=== PATIENT | male | born 1945 | race Caucasian/White ===

== ENCOUNTER 2016-11-05 15:47 | Emergency (ER) | payer BC, MEDICARE, OTHER ==
[2016-11-05] MEDS ORDERED: ONDANSETRON ODT 4 MG TAB.RAPDIS ONE (17:03)
[2016-11-05] MEDS ORDERED: ACETAMINOPHEN 325 MG TABLET PO ONE (17:05)
--- NOTE | 2016-11-05 17:58 | ER NURSING DOCUMENTATION ---
Nurse's Notes [facility] Name:Adrian Fountain Age:71 yrs Sex:Male :1945 Arrival Date:11/05/2016 Time:15:47 Bed5 Private MD: Diagnosis:Leg Laceration, Except Thigh, w/o Complication Presentation: 11/05 15:51 Presenting complaint: Patient states: L ankle laceration. Transition of care: Home. lp 15:51 Acuity: CORIN 3 lp 15:51 Method Of Arrival: Private Vehicle lp 15:57 Complicating Factors: Metal piece from we[employer]ant charles flew into ankle. lp Triage Assessment: 16:05 General: Appears in no apparent distress, Behavior is appropriate for age. Pain: lp Complains of pain in anterior aspect of left ankle Pain currently is 6 out of 10 on a pain scale. EENT: No deficits noted. Neuro: No deficits noted. Cardiovascular: No deficits noted. Respiratory: No deficits noted. GI: : No deficits noted. Derm: No deficits noted. Musculoskeletal: No deficits noted. Injury Description: Laceration sustained to anterior aspect of left ankle is clean, not bleeding. Historical: - Allergies: No known drug Allergies; - Home Meds: 1. None - PMHx: Hearing Decreased; Duputyren contracture; - PSHx: L ORIF wrist; BIH; - Tetanus: < 10 years. - Ebola Screening: : Patient negative for fever greater than or equal to 101.5 degrees Fahrenheit, and additional compatible Ebola Virus Disease symptoms. Patient denies exposure to infectious person. Patient denies travel to an Ebola-affected area in the 21 days before illness onset. . - Immunization history: Pneumococcal vaccine is up to date, Flu Vaccine < 1 year. - Social history: Smoking status: Patient states was never smoker of tobacco. Screenin:07 Infectious Disease Risk None. Abuse screen: Denies threats or abuse. Denies injuries lp from another. Nutritional screening: No deficits noted. Assessment: 16:06 See Triage Assessment done by same RN. lp Vital Signs: 16:06 BP 120 / 60; Pulse 58; Resp 16; Temp 97.3(TE); Pulse Ox 95% on R/A; Weight 61.23 kg; lp Height 5 ft. 5 in. (165.10 cm); Pain 6/10; 16:06 Body Mass Index 22.46 (61.23 kg, 165.10 cm) lp ED Course: 15:49 Patient arrived in ED. ama 15:51 Mimi Cantor RN is Primary Nurse. lp 15:51 Triage completed. lp 15:51 Chuck Carlos MD is Attending Physician. tl1 16:[address] Carlos notified. lp 16:07 Valuables Remains with patient Patient has correct armband on for positive lp identification. Bed in low position. Call light in reach. Side rails up X 1. Administered Medications: 16:52 CANCELLED (Other Intervention Used): 2 tabs of (oxyCODONE 5 mg, Acetaminophen 325 mg) lp PO once 16:53 Drug: Ondansetron 4 mg; Route: PO; lp 17:56 Follow up: Response: Nausea is decreased lp 16:54 Drug: oxyCODONE 10 mg; Route: PO; lp 17:56 Follow up: Response: Pain is decreased lp 16:54 Drug: Acetaminophen 650 mg; Route: PO; lp 17:56 Follow up: Response: Pain is decreased lp Outcome: 17:39 Discharge ordered by . tl1 17:56 Discharged to home with crutches. lp 17:56 Condition: good 17:56 Instructed on crutch walking, discharge instructions, follow up and referral plans. medication usage. 17:57 Patient left the ED. lp 07 13:21 Discharge F/U Call: Unable to reach: non-working number rh Signatures: Mimi Cantor RN RN Parvin Jacobsen tt Jason Bill, Reg Reg Chuck Suarez MD MD tl1 Precious Gatica rh
--- NOTE | 2016-11-05 17:58 | ER PHYSICIAN DOCUMENTATION ---
Physician Documentation [facility] Name:Adrian Fountain Age:71 yrs Sex:Male :1945 Arrival Date:11/05/2016 Time:15:47 Bed5 Private MD: Chuck Cruz Disposition: 11/07 10:06 Chart complete. tl1 Disposition: 11/05/16 17:39 Discharged to Home/Self Care. Impression: Leg Laceration, Except Thigh, w/o Complication. - Condition is Good. - Discharge Instructions: Abrasions - LACERATION, All. - Prescriptions for Percocet 5- 325 mg Oral Tablet - take 1 tablet by ORAL route every 6 hours As needed; 20 tablet. Zofran 4 mg Oral Tablet - take 1-2 tablet by ORAL route every 4-6 hours As needed; 10 tablet. - Medical Reconciliation form form. - Follow up: Emergency Department; When: 2 - 3 days; Reason: Recheck today's complaints. - Problem is new. - Symptoms have improved. HPI: 11/05 16:00 This 71 yrs old Male presents to ER via Private Vehicle with complaints of tl1 Laceration - TO L ANKLE. 16:00 Struck by the metal blade of a weed charles just [employer], sustaining a laceration to the tl1 left anterior distal mitchell and now complaining of severe pain, far more than he would have expected. No N/W/T.. Historical: - Allergies: No known drug Allergies; - Home Meds: 1. None - PMHx: Hearing Decreased; Duputyren contracture; - PSHx: L ORIF wrist; BIH; - Tetanus: < 10 years. - Ebola Screening: : Patient negative for fever greater than or equal to 101.5 degrees Fahrenheit, and additional compatible Ebola Virus Disease symptoms. Patient denies exposure to infectious person. Patient denies travel to an Ebola-affected area in the 21 days before illness onset. . - Immunization history: Pneumococcal vaccine is up to date, Flu Vaccine < 1 year. - Social history: Smoking status: Patient states was never smoker of tobacco. ROS: 16:00 MS/extremity: Positive for laceration. tl1 16:00 All other systems are negative. Exam: 16:00 Constitutional: This is a well developed, well nourished patient who is awake, alert, tl1 and in no acute distress. 16:00 Head/Face: Normocephalic, atraumatic. tl1 16:00 Musculoskeletal/extremity: Extremities: grossly normal except: noted in the anterior aspect of left ankle: laceration, 1.5 CM superficial transverse laceration, gaping only about 1 mm. 16:00 Skin: asa above. Vital Signs: 16:06 BP 120 / 60; Pulse 58; Resp 16; Temp 97.3(TE); Pulse Ox 95% on R/A; Weight 61.23 kg; lp Height 5 ft. 5 in. (165.10 cm); Pain 6/10; 16:06 Body Mass Index 22.46 (61.23 kg, 165.10 cm) lp Laceration: 16:00 Wound Repair of 1.5cm ( 0.6in ) subcutaneous laceration to anterior aspect of left tl1 ankle. Distal neuro/vascular/tendon intact. Anesthesia: Wound infiltrated with 2 mls of 0.5% marcaine. Wound prep: Extensive cleansing with hibiclenz, Wound explored, Copious irrigation. Skin closed with nothing Ethilon using I elected not to close this because it is not gaping and it is cosmetically unimportant, and should heal just as well w/o sutures as with.. Dressed with Bacitracin, Kerlix. Patient tolerated well. MDM: 15:51 Patient medically screened. tl1 16:00 Data reviewed: vital signs, nurses notes, and as a result, I will discharge patient. tl1 Counseling: I had a detailed discussion with the patient and/or guardian regarding: the historical points, exam findings, and any diagnostic results supporting the discharge/admit diagnosis, the need for outpatient follow up, with the patient's primary care provider, to return to the emergency department if symptoms worsen or persist or if there are any questions or concerns that arise at home. Response to treatment: the patient's symptoms have mildly improved after treatment, and as a result, I will discharge patient. 11/06 12:11 Order name: ANKLE; 3V [place] [id number]; Complete Time: 10:07 EDMS 07 10:07 Interpretation: Normal. tl1 Dispensed Medications: 16:52 CANCELLED (Other Intervention Used): 2 tabs of (oxyCODONE 5 mg, Acetaminophen 325 mg) lp PO once 16:53 Drug: Ondansetron 4 mg; Route: PO; lp 17:56 Follow up: Response: Nausea is decreased lp 16:54 Drug: oxyCODONE 10 mg; Route: PO; lp 17:56 Follow up: Response: Pain is decreased lp 16:54 Drug: Acetaminophen 650 mg; Route: PO; lp 17:56 Follow up: Response: Pain is decreased lp Signatures: Mimi Cantor RN RN Chuck Humphrey MD MD tl1
--- NOTE | 2016-11-06 09:30 | RADIOLOGY REPORT ---
Three views of the left ankle demonstrate no fracture or dislocation. Joints appear unremarkable. IMPRESSION: No displaced injury. If clinically indicated, further evaluation and/or follow-up may be of benefit. [facility]ITALAshley
== END 2016-11-05 17:57 | disposition home or self-care (01) ==
LOC: ER 15:47
DX: S81.812A Laceration without foreign body, left lower leg, initial encounter (principal); W29.3XXA Contact with powered garden and outdoor hand tools and machinery, initial encounter; Y93.H9 Activity, other involving exterior property and land maintenance, building and construction
CPT/HCPCS: 12031; 73610; 99282; 99283